=== PATIENT | female | born 1990 | race Caucasian/White ===

== ENCOUNTER 2019-08-11 12:13 | Emergency (ER) | payer MEDICAID, OTHER ==
[~2019-08-11] VITALS: Ht 170.2 cm; Wt 104.3 kg
[2019-08-11] MEDS ORDERED: SERT100T PO (12:20)
--- NOTE | 2019-08-11 12:20 | NUR ---
at bedside to examine patient.
[2019-08-11] MEDS: ACETAMINOPHEN ES 500 MG TABLET PO ONE (12:35)
[2019-08-11] MEDS ORDERED: ACETAMINOPHEN ES 500 MG TABLET ONE (12:39)
--- NOTE | 2019-08-11 12:45 | NUR ---
pt. down to ct.
--- NOTE | 2019-08-11 13:01 | NUR ---
pt. back from ct.
--- NOTE | 2019-08-11 13:01 | NUR ---
pt. ambulatory and able to walk herself to bathroom.
--- NOTE | 2019-08-11 13:39 | NUR ---
Hr of 77, 100% RA, 0/10 pain, sbp of 131/53.
--- NOTE | 2019-08-11 13:41 | NUR ---
dcd instructions given to pt. left room AAOx4. vitals stable steady gait.
== END 2019-08-11 13:44 | disposition home or self-care (01) ==
LOC: ER 12:14
DX: M54.2 Cervicalgia (principal); F32.9 Major depressive disorder, single episode, unspecified; Z79.899 Other long term (current) drug therapy; V89.2XXA Person injured in unspecified motor-vehicle accident, traffic, initial encounter; Y93.89 Activity, other specified; Y92.89 Other specified places as the place of occurrence of the external cause; Y99.8 Other external cause status
CPT/HCPCS: 70450; 72125; A4663; A9150